=== PATIENT | female | born 1985 | race Caucasian/White ===

== ENCOUNTER 2018-11-04 11:19 | Day surgery (SDC) | payer OTHER ==
[~2018-11-04 11:19] MED LIST: CEFAZOLIN 1 GM INJ; DESFLURANE 15 MIN; DEXAMETHASONE 4 MG/ML 5 ML INJ; ONDANSETRON 4 MG INJ
[2018-11-04] MEDS ORDERED: FENTAnyl 50 MCG/ML VIAL (11:47)
[2018-11-04] MEDS ORDERED: MIDAZOLAM 1 MG/ML 2 ML INJ (11:49)
[2018-11-04] MEDS ORDERED: ROCURONIUM 50 MG INJ (11:52)
[2018-11-04] MEDS ORDERED: SUCCINYLCHOLINE CHLORIDE 100 MG/5 ML SYG IV (11:52)
[2018-11-04] MEDS ORDERED: PROPOFOL 20 ML (11:52)
[2018-11-04] MEDS ORDERED: LIDOCAINE 2% (SDV) 5 ML INJ ×2 (11:52)
[2018-11-04] MEDS ORDERED: LIDOCAINE 1% (MPF) 30 ML INJ (13:35)
[2018-11-04] MEDS ORDERED: PHENYLephrine 10 MG INJ (13:36)
[2018-11-04] MEDS ORDERED: BACITRACIN/POLYMYXIN 28.35 GM OINT TOP (13:36)
[2018-11-04] MEDS ORDERED: HYDROmorphONE 1 MG/5 ML IV SYRINGE IV (14:00)
[2018-11-04] MEDS ORDERED: LEVALBUTEROL (NEB) 1.25 MG/0.5 ML AMP HHN (14:00)
[2018-11-04] MEDS ORDERED: FENTAnyl 50 MCG/ML VIAL IV ×2 (14:00)
[2018-11-04] MEDS ORDERED: MEPERIDINE 25 MG INJ IV (14:00)
[2018-11-04] MEDS ORDERED: DIPHENHYDRAMINE 50 MG INJ IV (14:00)
[2018-11-04] MEDS ORDERED: HALOPERIDOL 5 MG INJ IV (14:00)
[2018-11-04] MEDS: LIDOCAINE 1%/EPI 30 ML INJ (14:09)
[2018-11-04] MEDS ORDERED: METOCLOPRAMIDE 10 MG INJ (14:17)
[2018-11-04] MEDS: HYDROmorphONE 1 MG/5 ML IV SYRINGE IV ×2 (17:17→17:25)
[2018-11-04] MEDS: ONDANSETRON 4 MG INJ IV (17:18)
== END 2018-11-04 18:26 | disposition home or self-care (01) ==
LOC: SDS 11:19
DX: J34.89 Other specified disorders of nose and nasal sinuses (principal); M95.0 Acquired deformity of nose
CPT/HCPCS: 20912; 84703